=== PATIENT | female | born 1975 | race Caucasian/White ===

== ENCOUNTER 2022-09-28 05:35 | Inpatient (IN) | payer OTHER ==
[~2022-09-28] VITALS: Ht 152.4 cm; Wt 72.6 kg
[~2022-09-28 05:35] MED LIST: NON
== END 2022-09-30 12:23 | disposition home or self-care (01) | DRG 743 ==
LOC: OB/GYN 05:35 → O/R 05:35 → SURH 10:45 → OB/GYN 15:20
PROVIDERS: ADMIT Obstetrics & Gynecology; ATTEND Obstetrics & Gynecology
PROC: 0UT70ZZ Resection of Bilateral Fallopian Tubes, Open Approach (ICD-10-PCS; 2022-09-28)
PROC: 0UT20ZZ Resection of Bilateral Ovaries, Open Approach (ICD-10-PCS; 2022-09-28)
PROC: 0DNW0ZZ Release Peritoneum, Open Approach (ICD-10-PCS; 2022-09-28)
PROC: 0UT90ZZ Resection of Uterus, Open Approach (ICD-10-PCS; principal; 2022-09-28 10:45)
DX: D25.1 Intramural leiomyoma of uterus (principal); N80.03 Adenomyosis of the uterus; N72 Inflammatory disease of cervix uteri; N83.01 Follicular cyst of right ovary; N83.02 Follicular cyst of left ovary; Z20.822 Contact with and (suspected) exposure to COVID-19; N73.6 Female pelvic peritoneal adhesions (postinfective)